=== PATIENT | male | born 1960 | race American Indian/Alaskan Native ===

== ENCOUNTER 2016-09-06 11:42 | Emergency (ER) | payer MEDICAID ==
[2016-09-06 11:42] VITALS: BMI 42.3
[2016-09-06 11:46] VITALS: BP 135/87; PULSE 83; RESP 20; TEMP 98.7; O2SAT 98
--- NOTE | 2016-09-06 12:38 | C.PDOC ---
History Of Present Illness 55 y/o male presents to the ED with complaints of swelling to right hand. Pt fell 1 week ago injuring right hand. Pt iced the area, elevated the hand and applied warm compresses with some relief, but still has mild swelling. Denies numbness, weakness, decrease in ROM, any other injury or any other complaints. Time Seen by Provider: 09/06/16 11:48 Chief Complaint (Nursing): Finger,Hand,&Wrist History Per: Patient History/Exam Limitations: no limitations Onset/Duration Of Symptoms: Days Current Symptoms Are (Timing): Better Severity: Mild Recent travel outside of the [place]: No Past Medical History Reviewed: Historical Data, Nursing Documentation, Vital Signs Vital Signs: Last Vital Signs Temp 98.7 F 09/06/16 11:45 Pulse 83 09/06/16 11:45 Resp 20 09/06/16 11:45 BP 135/87 09/06/16 11:45 Pulse Ox 98 09/06/16 12:41 - Medical History PMH: Asthma, HTN Surgical History: Appendectomy (2009), Endoscopy - [facility] Procedures CYSTOSCOPY NEC (07/13/14) Family History: States: Unknown Family Hx - Social History Hx Alcohol Use: No Hx Substance Use: No - Immunization History Hx Tetanus Toxoid Vaccination: No Review Of Systems Except As Marked, All Systems Reviewed And Found Negative. Constitutional: Negative for: Fever, Chills Musculoskeletal: Positive for: Hand Pain (right hand swelling and discomfort) Neurological: Negative for: Weakness, Numbness Physical Exam - Physical Exam Appears: Non-toxic, No Acute Distress Skin: Warm, Dry, No Rash Head: Atraumatic, Normacephalic Extremity: Normal ROM, No Tenderness, Capillary Refill (<2 seconds), No Deformity, Swelling (mild edema to dorsal aspect tight hand and fingers) Neurological/Psych: Oriented x3, Normal Speech, Normal Motor, Normal Sensation ED Course And Treatment O2 Sat by Pulse Oximetry: 98 (room air) Pulse Ox Interpretation: Normal Progress Note: Plan: XR right hand Medical Decision Making Medical Decision Makin yo M presents with R hand pain after he fell 1 week ago. XR R hand : (-) fracture, (-) dislocation, as read by PA. XR results d/w the pt in great detail, advised to continue to ice and elevate, take otc pain medication prn for pain. Otherwise advised to f/u with pmd in 1-2 days without fail for re-evaluation, instructed to return to the ER at any time for any new or worsening symptoms. Pt verbalize understanding of instructions, given the opportunity to ask any questions. Disposition - Disposition Disposition: HOME/ ROUTINE Disposition Time: 12:30 Condition: STABLE Instructions: Contusion in Adults (ED) Forms: Work Excuse Print Language: WELSH - Clinical Impression Clinical Impression: Hand contusion - PA / IMPLEMENTATION ANALYST / Resident Statement MD/DO has reviewed & agrees with the documentation as recorded. - Scribe Statement The provider has reviewed the documentation as recorded by the Scribe Marino Urena All medical record entries made by the Ngozi were at my direction and personally dictated by me. I have reviewed the chart and agree that the record accurately reflects my personal performance of the history, physical exam, medical decision making, and the department course for this patient. I have also personally directed, reviewed, and agree with the discharge instructions and disposition.
--- NOTE | 2016-09-06 13:01 | RAD ---
PROCEDURE: Right Hand Radiographs. HISTORY: pain COMPARISON: None. FINDINGS: BONES: Normal. No gross cortical fracture. JOINTS: Normal. No osteoarthritic changes. SOFT TISSUES: Soft tissue swelling over the 5th metacarpal is noted. No gross cortical fracture appreciated. OTHER FINDINGS: None. IMPRESSION: No gross cortical fracture appreciated. Soft tissue swelling over 5th digit If symptoms persist consider reimaging in 7 the 10 days
== END 2016-09-06 13:22 | disposition home or self-care (01) ==
LOC: C.ER 11:42
DX: S60.221A Contusion of right hand, initial encounter (principal); W19.XXXA Unspecified fall, initial encounter

== ENCOUNTER 2017-12-12 17:20 | Observation (INO) | payer MEDICAID ==
[2017-12-12 17:20] VITALS: BMI 42.3
--- NOTE | 2017-12-12 18:54 | C.PDOC ---
History Of Present Illness 57-year-old male presents to the ED for evaluation after experiencing chest pain earlier today. Patient states he developed chest pain shortly after eating bananas and shane crackers for lunch. Patient initially thought symptoms were consistent with GERD. He hen developed throat tightness and pain that radiated to his jaw. He took two Aspirins and had three large burps, after which his symptoms improved. Patient presents to the ED because he is concerned about the pain radiation into his jaw. Of note, patient had a stress test 8 years ago which was normal. Patient denies shortness of breath, nausea, vomiting, abdominal pain, and back pain. Time Seen by Provider: 12/12/17 18:30 Chief Complaint (Nursing): Chest Pain History Per: Patient History/Exam Limitations: no limitations Onset/Duration Of Symptoms: Hrs Current Symptoms Are (Timing): Gone Quality: "Pain" Associated Symptoms: denies: Nausea Additional History Per: Patient Past Medical History Reviewed: Historical Data, Nursing Documentation, Vital Signs Vital Signs: Last Vital Signs Temp 99.2 F 12/12/17 17:34 Pulse 60 12/12/17 17:34 Resp 20 12/12/17 17:34 BP 127/82 12/12/17 17:34 Pulse Ox 100 12/12/17 17:34 - Medical History PMH: Asthma, HTN Denies: Chronic Kidney Disease Surgical History: Appendectomy (2009), Endoscopy - [facility] Procedures CYSTOSCOPY NEC (07/13/14) Family History: States: Unknown Family Hx - Social History Hx Alcohol Use: No Hx Substance Use: No - Immunization History Hx Tetanus Toxoid Vaccination: No Hx Influenza Vaccination: No Hx Pneumococcal Vaccination: No Review Of Systems Constitutional: Negative for: Fever, Chills Eyes: Negative for: Pain, Vision Change ENT: Positive for: Other (throat tightness) Cardiovascular: Positive for: Chest Pain Respiratory: Negative for: Cough, Shortness of Breath, SOB with Excertion, Wheezing Gastrointestinal: Negative for: Nausea, Vomiting, Abdominal Pain, Diarrhea, Constipation Genitourinary: Negative for: Dysuria Musculoskeletal: Positive for: Other (jaw pain ). Negative for: Back Pain Neurological: Negative for: Weakness, Numbness, Altered Mental Status, Headache Physical Exam - Physical Exam Appears: Well, Non-toxic, No Acute Distress Skin: Normal Color, Warm, Dry Head: Atraumatic, Normacephalic Eye(s): bilateral: Normal Inspection, PERRL, EOMI Oral Mucosa: Moist Neck: Supple Chest: Symmetrical, No Deformity, No Tenderness Cardiovascular: Rhythm Regular, No Murmur Respiratory: Normal Breath Sounds, No Rales, No Rhonchi, No Wheezing Extremity: Normal ROM, Capillary Refill (less than 2 seconds ) Neurological/Psych: Oriented x3, Normal Speech, Normal Cognition ED Course And Treatment - Laboratory Results Result Diagrams: 12/12/17 19:02 12/12/17 19:02 O2 Sat by Pulse Oximetry: 100 (on RA) Pulse Ox Interpretation: Normal Medical Decision Making Medical Decision Making: Impression: 57 year old male with chest pain, throat tightness, jaw pain Plan: * bloodwork * CXR * Aspirin PO * reassess and disposition Progress: Bloodwork and CXR ordered and reviewed. Aspirin PO given. EKG shows sinus rhythm at 1st degree AV block. Heart score:4. Trop x 1 negative. Cxray negative Spoke to Dr. Cui who requests admission to hospitalist. Spoke to hospitalist who reports that if not on list of admitting doctors that Dr. Puckett is aware of, goes to medicine front line leader. Spoke to Dr. Jimenez who accepted patient. Disposition - Disposition Disposition: HOSPITALIZED Disposition Time: 20:17 Condition: FAIR - Clinical Impression Clinical Impression: Chest pain - Scribe Statement The provider has reviewed the documentation as recorded by the Scribe (Arlin Lyle) Provider Attestation: All medical record entries made by the Scribe were at my direction and personally dictated by me. I have reviewed the chart and agree that the record accurately reflects my personal performance of the history, physical exam, medical decision making, and the department course for this patient. I have also personally directed, reviewed, and agree with the discharge instructions and disposition.
[2017-12-12 19:06] LABS: BASO % 0.5 % (0.0-2.0); EOS # 0.3 K/uL (0.0-0.7); EOS % 4.1 % (0.0-4.0); HEMOGLOBIN 13.3 g/dL (12.0-18.0); LYMPH # 1.8 K/uL (1.0-4.3); LYMPH % 27.9 % (20.0-40.0); MEAN CELL VOLUME 92.9 fL (80.0-94.0); MEAN CORPUSCULAR HEMOGLOBIN 31.4 pg (27.0-31.0); MEAN CORPUSCULAR HGB CONC 33.8 g/dL (33.0-37.0); MEAN PLATELET VOLUME 7.4 fL (7.2-11.7); MONO # 0.8 K/uL (0.0-0.8); MONO % 11.7 % (0.0-10.0); NEUT # 3.6 K/uL (1.8-7.0); NEUT % 55.8 % (50.0-75.0); RBC 4.23 Mil/uL (4.40-5.90); RED CELL DISTRIBUTION WIDTH 13.3 % (11.5-14.5); WHITE BLOOD COUNT 6.5 K/uL (4.8-10.8)
[2017-12-12 19:17] LABS: ALB/GLOB RATIO 1.2 (1.0-2.1)
[2017-12-12 19:19] LABS: ALBUMIN 4.1 g/dL (3.5-5.0); ALT/SGPT 27 U/L (21-72); AST/SGOT 37 U/L (17-59); BLOOD UREA NITROGEN 8 mg/dL (9-20); CALCIUM 9.1 mg/dl (8.6-10.4); GFR NON-AFRICAN AMERICAN > 60; LIPASE 111 U/L (23-300)
[2017-12-12 19:53] LABS: B-TYPE NATRIURETIC PEPTIDE 75.7 pg/mL (0-900)
[2017-12-12 23:11] VITALS: RESP 20
[2017-12-13] MEDS ORDERED: Albuterol HFA 90 mcg/actuation (8 g) INH PRN (04:00)
--- NOTE | 2017-12-13 08:31 | RAD ---
Date of service: 12/12/2017 HISTORY: No history provided COMPARISON: No prior. FINDINGS: LUNGS: The lungs are well inflated and clear. PLEURA: No significant pleural effusion identified, no pneumothorax apparent. CARDIOVASCULAR: Normal. OSSEOUS STRUCTURES: No significant abnormalities. VISUALIZED UPPER ABDOMEN: Normal. OTHER FINDINGS: None. IMPRESSION: No active pulmonary disease.
[2017-12-13] MEDS: Enoxaparin 40 mg Syringe SC SCH (09:45)
[2017-12-13] MEDS: Pantoprazole 40 mg EC Tab PO SCH (09:45)
[2017-12-13] MEDS ORDERED: FLUTICASONE PROPIONATE 50 MCG IH SCH (10:00)
--- NOTE | 2017-12-13 15:33 | CARD ---
APPROVED REPORT Date of service: 12/12/2017 EKG Measurement Heart [id number] <Conclusion> Sinus rhythm with 1st degree AV block Otherwise normal ECG
--- NOTE | 2017-12-13 18:01 | CARD ---
APPROVED REPORT Date of service: 12/13/2017 EXAM: Two-dimensional and M-mode echocardiogram with Doppler and color Doppler. Other Information Quality : TDSRhythm : INDICATION Cardiac Disease: CAD Chest Pain 2D DIMENSIONS IVSd1.1 (0.7-1.1cm)LVDd4.8 (3.9-5.9cm) PWd1.0 (0.7-1.1cm)LA [id number] (18-58mL) LVDs2.6 (2.5-4.0cm)FS (%) 45.5 % LVEF (%)76.7 (>50%)LVEF (Cui's)66.77 % M-Mode DIMENSIONS Left Atrium (MM)3.67 (2.5-4.0cm)IVSd0.98 (0.7-1.1cm) Aortic Root3.20 (2.2-3.7cm)LVDd5.25 (4.0-5.6cm) Aortic Cusp Exc.2.22 (1.5-2.0cm)PWd0.68 (0.7-1.1cm) FS (%) 42 %LVDs3.03 (2.0-3.8cm) LVEF (%)73 (>50%) Mitral Valve MV E Tddlnudn09.9cm/sMV A Laizidrp13.4cm/sE/A ratio1.0 TDI Lateral E' Peak V11.22cm/sMedial E' Peak V8.67cm/sE/Lateral E'7.4 E/Medial E'9.6 Tricuspid Valve TR Peak Xlahlkot493jx/sTR Peak Gr.04hqPxHZMO84moNc LEFT VENTRICLE The left ventricle is normal size. There is normal left ventricular wall thickness. Left ventricle systolic function is normal. The Ejection Fraction is 65-70%. There is normal LV segmental wall motion. Transmitral Doppler flow pattern is Grade I-abnormal relaxation pattern. There is no ventricular septal defect visualized. RIGHT VENTRICLE The right ventricle is normal size. The right ventricular systolic function is normal. ATRIA The left atrium is mildly dilated. The right atrium size is normal. AORTIC VALVE The aortic valve is tri-cuspid. The aortic valve is normal in structure. No aortic regurgitation is present. There is no aortic valvular stenosis. MITRAL VALVE The mitral valve is normal in structure. There is no evidence of mitral valve prolapse. There is no mitral valve regurgitation noted. TRICUSPID VALVE The tricuspid valve is normal in structure. There is trace tricuspid regurgitation. Right ventricular systolic pressure is estimated at less than 30 mmHg. There is no pulmonary hypertension. PULMONIC VALVE The pulmonic valve is not well visualized. There is trace pulmonic valvular regurgitation. GREAT VESSELS The aortic root is normal in size. The ascending aorta is normal in size. The IVC is normal in size and collapses >50% with inspiration. PERICARDIAL EFFUSION There is no pericardial effusion. <Conclusion> Left ventricle systolic function is normal. The Ejection Fraction is 65-70%. Transmitral Doppler flow pattern is Grade I-abnormal relaxation pattern.
--- NOTE | 2017-12-13 21:31 | CP.PCM.CON ---
History of Present Illness - History of Present Illness History of Present Illness: 57-year-old male presents to the ED for evaluation after experiencing chest pain. Patient states he developed chest pain shortly after eating bananas and shane crackers for lunch. Patient initially thought symptoms were consistent with GERD. He hen developed throat tightness and pain that radiated to his jaw. He took two Aspirins and had three large burps, after which his symptoms improved. Patient presents to the ED because he is concerned about the pain radiation into his jaw. Of note, patient had a stress test 8 years ago which was normal. Patient denies shortness of breath, nausea, vomiting, abdominal pain, and back pain. Past Medical History Reviewed: Historical Data, Nursing Documentation, Vital Signs - Medical History PMH: Asthma, HTN Denies: Chronic Kidney Disease Surgical History: Appendectomy (2009), Endoscopy - [facility] Procedures CYSTOSCOPY NEC (07/13/14) Family History: States: Unknown Family Hx - Social History Hx Alcohol Use: No Hx Substance Use: No - Immunization History Hx Tetanus Toxoid Vaccination: No Hx Influenza Vaccination: No Hx Pneumococcal Vaccination: No Review Of Systems Constitutional: Negative for: Fever, Chills Eyes: Negative for: Pain, Vision Change ENT: Positive for: Other (throat tightness) Cardiovascular: Positive for: Chest Pain Respiratory: Negative for: Cough, Shortness of Breath, SOB with Excertion, Wheezing Gastrointestinal: Negative for: Nausea, Vomiting, Abdominal Pain, Diarrhea, Constipation Genitourinary: Negative for: Dysuria Musculoskeletal: Positive for: Other (jaw pain ). Negative for: Back Pain Neurological: Negative for: Weakness, Numbness, Altered Mental Status, Headache Physical Exam - Physical Exam Appears: Well, Non-toxic, No Acute Distress Skin: Normal Color, Warm, Dry Head: Atraumatic, Normacephalic Eye(s): bilateral: Normal Inspection, PERRL, EOMI Oral Mucosa: Moist Neck: Supple Chest: Symmetrical, No Deformity, No Tenderness Cardiovascular: Rhythm Regular, No Murmur Respiratory: Normal Breath Sounds, No Rales, No Rhonchi, No Wheezing Extremity: Normal ROM, Capillary Refill (less than 2 seconds ) Neurological/Psych: Oriented x3, Normal Speech, Normal Cognition Past Patient History - Past Medical History & Family History Past Medical History?: Yes - Past Social History Smoking Status: Former Smoker - CARDIAC Hx Hypertension: Yes - PULMONARY Hx Asthma: Yes - NEUROLOGICAL Hx Neurological Disorder: Yes Hx Vertigo: Yes Other/Comment: BELLS PALSY 03/2013 - HEENT Hx HEENT Problems: Yes Other/Comment: UVITIS - RENAL Hx Chronic Kidney Disease: No - ENDOCRINE/METABOLIC Hx Endocrine Disorders: No - HEMATOLOGICAL/ONCOLOGICAL Hx Blood Disorders: No - INTEGUMENTARY Hx Dermatological Problems: No - MUSCULOSKELETAL/RHEUMATOLOGICAL Hx Musculoskeletal Disorders: No Hx Falls: No Other/Comment: Peripheral neuropathy - GASTROINTESTINAL Hx Gastrointestinal Disorders: Yes Hx Gastroesophageal Reflux: Yes - GENITOURINARY/GYNECOLOGICAL Hx Genitourinary Disorders: No Hx Urinary Tract Infection: Yes - PSYCHIATRIC Hx Substance Use: No - SURGICAL HISTORY Hx Appendectomy: Yes (2009) - ANESTHESIA Hx Anesthesia: Yes Hx Anesthesia Reactions: No Hx Malignant Hyperthermia: No Meds Allergies/Adverse Reactions: Allergies Allergy/AdvReac Type Severity Reaction Status Date / Time No Known Allergies Allergy Verified 12/12/17 17:38 - Medications Medications: Current Medications Albuterol (Ventolin Hfa 90 Mcg/Actuation (8 G)) 1 puff INH RQ4 PRN PRN Reason: Shortness of Breath Amlodipine Besylate (Norvasc) 10 mg PO DAILY [facility] Last Admin: 12/13/17 09:44 Dose: 10 mg Aspirin (Aspirin Chewable) 81 mg PO DAILY [facility] Last Admin: 12/13/17 09:44 Dose: 81 mg Enoxaparin Sodium (Lovenox) 40 mg SC DAILY [facility] Last Admin: 12/13/17 09:45 Dose: Not Given Influenza Virus Vaccine (Fluzone Quad [id number]) 60 mcg IM .ONCE ONE Stop: 12/15/17 12:01 Pantoprazole Sodium (Protonix Ec Tab) 40 mg PO DAILY [facility] Last Admin: 12/13/17 09:45 Dose: Not Given Pneumococcal Polyvalent Vaccine (Pneumovax 23 Vaccine) 0.5 ml IM .ONCE ONE Stop: 12/15/17 12:01 Results - Vital Signs Recent Vital Signs: Last Vital Signs Temp 98.1 F 12/13/17 15:00 Pulse 69 12/13/17 15:00 Resp 20 12/13/17 15:00 BP 122/82 12/13/17 15:00 Pulse Ox 97 12/13/17 15:00 - Labs Result Diagrams: 12/12/17 19:02 12/12/17 19:02 Labs: Laboratory Results - last 24 hr 12/13/17 12/13/17 00:51 08:01 Troponin I < 0.0120 < 0.0120 Assessment & Plan - Assessment and Plan (Free Text) Assessment: chest pain: Non cardiac ECHO: Normal EF EKG: NSR Trop x 3 normal Recommend Pulmonary Consult r/o Pulmonary Embolism or other lung etiologies
[2017-12-14 08:07] VITALS: BP 124/84; PULSE 67; TEMP 98.2; O2SAT 95
[2017-12-14] MEDS: Enoxaparin 40 mg Syringe SC SCH (11:14)
[2017-12-14] MEDS: Pantoprazole 40 mg EC Tab PO SCH (11:14)
--- NOTE | 2017-12-14 11:18 | CP.PCM.HP ---
History of Present Illness - History of Present Illness History of Present Illness: pt ate alot of food came feeling epigastric discomfort and chest pain imroved after burbing a lot then came to ed pt seen by cardiologr and wqork up proof itis non cardiaac Present on Admission - Present on Admission Any Indicators Present on Admission: No Review of Systems - Review of Systems Systems not reviewed;Unavailable: Acuity of Condition - Constitutional Constitutional: As Per HPI - EENT Eyes: As Per HPI Ears: As Per HPI Nose/Mouth/Throat: As Per HPI - Cardiovascular Cardiovascular: Chest Pain at Rest - Respiratory Respiratory: As Per HPI - Gastrointestinal Gastrointestinal: Bloating - Genitourinary Genitourinary: As Per HPI - Reproductive: Male Reproductive:Male: As Per HPI - Musculoskeletal Musculoskeletal: As Per HPI - Integumentary Integumentary: As Per HPI - Neurological Neurological: As Per HPI - Psychiatric Psychiatric: As Per HPI - Endocrine Endocrine: As Per HPI - Hematologic/Lymphatic Hematologic: As Per HPI Past Patient History - Past Medical History & Family History Past Medical History?: Yes - Past Social History Smoking Status: Former Smoker - CARDIAC Hx Hypertension: Yes - PULMONARY Hx Asthma: Yes - NEUROLOGICAL Hx Neurological Disorder: Yes Hx Vertigo: Yes Other/Comment: BELLS PALSY 03/2013 - HEENT Hx HEENT Problems: Yes Other/Comment: UVITIS - RENAL Hx Chronic Kidney Disease: No - ENDOCRINE/METABOLIC Hx Endocrine Disorders: No - HEMATOLOGICAL/ONCOLOGICAL Hx Blood Disorders: No - INTEGUMENTARY Hx Dermatological Problems: No - MUSCULOSKELETAL/RHEUMATOLOGICAL Hx Musculoskeletal Disorders: No Hx Falls: No Other/Comment: Peripheral neuropathy - GASTROINTESTINAL Hx Gastrointestinal Disorders: Yes Hx Gastroesophageal Reflux: Yes - GENITOURINARY/GYNECOLOGICAL Hx Genitourinary Disorders: No Hx Urinary Tract Infection: Yes - PSYCHIATRIC Hx Substance Use: No - SURGICAL HISTORY Hx Appendectomy: Yes (2009) - ANESTHESIA Hx Anesthesia: Yes Hx Anesthesia Reactions: No Hx Malignant Hyperthermia: No Meds Allergies/Adverse Reactions: Allergies Allergy/AdvReac Type Severity Reaction Status Date / Time No Known Allergies Allergy Verified 12/12/17 17:38 Physical Exam - Constitutional Appears: Well, Non-toxic - Head Exam Head Exam: NORMAL INSPECTION - Eye Exam Eye Exam: Normal appearance Pupil Exam: NORMAL ACCOMODATION - ENT Exam ENT Exam: Mucous Membranes Moist - Respiratory Exam Respiratory Exam: Clear to Auscultation Bilateral - Cardiovascular Exam Cardiovascular Exam: REGULAR RHYTHM - GI/Abdominal Exam GI & Abdominal Exam: Normal Bowel Sounds - Rectal Exam Rectal Exam: NORMAL INSPECTION - Exam Exam: NORMAL INSPECTION - Back Exam Back exam: NORMAL INSPECTION - Neurological Exam Neurological exam: Alert, Normal Gait, Oriented x3 - Psychiatric Exam Psychiatric exam: Normal Affect, Normal Mood - Skin Skin Exam: Normal Color Results - Vital Signs Recent Vital Signs: Last Vital Signs Temp 98.2 F 12/14/17 07:00 Pulse 67 12/14/17 07:00 Resp 20 12/14/17 07:00 BP 124/84 12/14/17 07:00 Pulse Ox 95 12/14/17 07:00 - Labs Result Diagrams: 12/12/17 19:02 12/12/17 19:02 Assessment & Plan - Assessment and Plan (Free Text) Assessment: cest pain non cardiac htn controled Plan: pt was kept for cardiology norbert chapa was don and clearedwill discharge pt today on his med f/u in my office - Date & Time Date: 12/14/17 Time: 11:23
[2017-12-15] MEDS ORDERED: Pneumococcal 23-Valent Vaccine IM ONE (12:00)
[2017-12-15] MEDS ORDERED: Influenza Vaccine 60 MCG/0.5 ML SYR (3 yr & up) IM ONE (12:00)
== END 2017-12-14 14:05 | disposition home or self-care (01) ==
LOC: C.ER 17:20 → C.9E 20:15 → C.6T 22:21
PROVIDERS: ADMIT Internal Medicine; ATTEND Internal Medicine
DX: R07.9 Chest pain, unspecified (principal); J45.909 Unspecified asthma, uncomplicated; K21.9 Gastro-esophageal reflux disease without esophagitis; I10 Essential (primary) hypertension; Z87.891 Personal history of nicotine dependence; Z87.440 Personal history of urinary (tract) infections; Z90.49 Acquired absence of other specified parts of digestive tract
CPT/HCPCS: 36415; 71045; 80053; 82550; 83690; 83735; 83880; 84100; 84484; 85025; 93005; 93306; 94770; 99285; G0378; J1650

== ENCOUNTER 2018-07-25 17:14 | Emergency (ER) | payer MEDICAID | END 2018-07-25 19:29 | disposition home or self-care (01) | LOC: C.ER 17:14 ==